=== PATIENT | male | born 1970 | race Caucasian/White ===

== ENCOUNTER 2017-06-03 15:12 | Emergency (ER) | payer OTHER ==
[2015-09-08 09:54] VITALS: BMI 25.5
[~2017-06-03 15:12] MED LIST: CYCLOBENZAPRINE10 MG PO; GABAPENTIN100 MG PO; GLUCOPHAGE1000 MG PO; GLUCOPHAGE500 MG PO; KLONOPIN1 MG PO; MOBIC7.5 MG PO; NEURONTIN 300300 MG PO; TAMIFLU75 MG; TAMIFLU75 MG PO
[2017-06-03 16:35] LABS: BASOPHILS 0.2 % (0-2); EOSINOPHILS 1.4 % (0-7); HEMATOCRIT 43.2 % (42.0-54.0); HEMOGLOBIN 15.5 g/dL (13.5-17.5); IMMATURE GRANULOCYTES 0.1 % (0-5); LYMPHOCYTES 26.9 % (15-50); MCH 31.8 pg (26.0-34.0); MCHC 35.9 g/dL (31.0-37.0); MCV 88.7 fL (80.0-100.0); MEAN PLATELET VOLUME 10.9 fL (7.4-10.4); MONOCYTES 5.7 % (2-11); NEUTROPHILS 65.7 % (40-80); RBC 4.87 10x6/uL (4.20-6.10); RDW 12.3 % (11.5-14.5); WBC 14.4 10x3/uL (4.8-10.8)
[2017-06-03 16:36] LABS: PLATELET COUNT 346 10x3/uL (130-400)
[2017-06-03 16:54] LABS: ALBUMIN 3.8 g/dL (3.4-5.0); ALKALINE PHOSPHATASE 113 U/L (46-116); ALT (SGPT) 24 U/L (10-68); BILIRUBIN - TOTAL 0.77 mg/dL (0.2-1.3); CALC OSMOLALITY 273 mosm/kg (275-300); CALCIUM 9.1 mg/dL (8.5-10.1); CARBON DIOXIDE 26.4 mmol/L (21.0-32.0); CHLORIDE - SERUM 102 mmol/L (98-107); CREATININE - SERUM 0.9 mg/dL (0.6-1.3); POTASSIUM - SERUM 4.3 mmol/L (3.5-5.1); PROTEIN - SERUM 8.8 g/dL (6.4-8.2); SODIUM 138 mmol/L (136-145); UREA NITROGEN 9 mg/dL (7-18); eGFR NON AFRICAN AMERICAN > 90 mL/min (90-120)
[2017-06-03 17:00] LABS: GLUCOSE 83 mg/dL (74-106)
[2017-06-03 17:10] LABS: APPEARANCE CLEAR (CLEAR); BILIRUBIN NEGATIVE (NEGATIVE); COLOR YELLOW (YELLOW); GLUCOSE NEGATIVE (NEGATIVE); KETONE NEGATIVE (NEGATIVE); NITRITE NEGATIVE (NEGATIVE); PROTEIN NEGATIVE (NEGATIVE); UROBILINOGEN NORMAL (NORMAL)
== END 2017-06-03 18:32 | disposition home or self-care (01) ==
LOC: D.ER 15:12
PROVIDERS: Emergency Medicine
DX: R10.9 Unspecified abdominal pain (principal); E11.9 Type 2 diabetes mellitus without complications

== ENCOUNTER 2018-10-07 12:26 | Emergency (ER) | payer OTHER ==
[~2018-10-07] VITALS: Ht 180.3 cm; Wt 100.9 kg
[2018-10-07 12:28] VITALS: Ht 180.3 cm; Wt 100.9 kg
[2018-10-07] MEDS ORDERED: MOBIC7.5 MG (12:33)
[2018-10-07] MEDS ORDERED: MIRAPEX0.5 MG PO (12:34)
[2018-10-07 13:23] LABS: APTT 27.2 SECONDS (22.8-39.4); INR 1.05 (0.85-1.17); PROTIME 13.2 SECONDS (11.6-15.0)
[2018-10-07 13:29] LABS: ALBUMIN 3.5 g/dL (3.4-5.0); ALKALINE PHOSPHATASE 117 U/L (46-116); ALT (SGPT) 26 U/L (10-68); BILIRUBIN - TOTAL 0.68 mg/dL (0.2-1.3); CALC OSMOLALITY 280 mosm/kg (275-300); CALCIUM 8.8 mg/dL (8.5-10.1); CARBON DIOXIDE 28.1 mmol/L (21.0-32.0); CHLORIDE - SERUM 103 mmol/L (98-107); PROTEIN - SERUM 7.7 g/dL (6.4-8.2); SODIUM 139 mmol/L (136-145); UREA NITROGEN 14 mg/dL (7-18); eGFR NON AFRICAN AMERICAN 85 mL/min (90-120)
[2018-10-07 13:31] LABS: GLUCOSE 139 mg/dL (74-106)
[2018-10-07 13:37] LABS: BASOPHILS 0.3 % (0-2); EOSINOPHILS 2.1 % (0-7); HEMATOCRIT 46.2 % (42.0-54.0); HEMOGLOBIN 16.9 g/dL (13.5-17.5); IMMATURE GRANULOCYTES 0.1 % (0-5); LYMPHOCYTES 25.4 % (15-50); MCH 32.7 pg (26.0-34.0); MCHC 36.6 g/dL (31.0-37.0); MCV 89.4 fL (80.0-100.0); MEAN PLATELET VOLUME 11.3 fL (7.4-10.4); MONOCYTES 6.4 % (2-11); NEUTROPHILS 65.7 % (40-80); PLATELET COUNT 269 10x3/uL (130-400); RBC 5.17 10x6/uL (4.20-6.10); RDW 12.3 % (11.5-14.5); WBC 7.3 10x3/uL (4.8-10.8)
[2018-10-07 13:41] LABS: CKMB 1.8 U/L (0.0-3.6); CREATINE KINASE 88 UL (21-232); MAGNESIUM - SERUM 2.4 mg/dL (1.8-2.4)
[2018-10-07 13:44] LABS: TROPONIN-I < 0.017 ng/mL (0.000-0.060)
[2018-10-07 14:29] VITALS: BP 155/87
== END 2018-10-07 14:30 | disposition home or self-care (01) ==
LOC: D.ER 12:26
PROVIDERS: Emergency Medicine
DX: R55 Syncope and collapse (principal)

== ENCOUNTER 2020-03-19 19:12 | Emergency (ER) | payer SELFPAY ==
[~2020-03-19] VITALS: Ht 180.3 cm; Wt 113.6 kg
[~2020-03-19 19:12] MED LIST changes: +MIRAPEX0.5 MG PO; +MOBIC7.5 MG
[2020-03-19 19:21] VITALS: Ht 180.3 cm; Wt 113.6 kg
[2020-03-19] MEDS ORDERED: VYVANSE70 MG PO (19:22)
[2020-03-19] MEDS ORDERED: SCOPOLAMINE1 EACH TRANSDERM (19:23)
[2020-03-19 19:53] LABS: BASOPHILS 0.3 % (0-2); EOSINOPHILS 1.3 % (0-7); HEMATOCRIT 47.9 % (42.0-54.0); HEMOGLOBIN 16.9 g/dL (13.5-17.5); IMMATURE GRANULOCYTES 0.4 % (0-5); LYMPHOCYTES 17.5 % (15-50); MCH 32.7 pg (26.0-34.0); MCHC 35.3 g/dL (31.0-37.0); MCV 92.6 fL (80.0-100.0); MEAN PLATELET VOLUME 9.8 fL (7.4-10.4); MONOCYTES 6.4 % (2-11); NEUTROPHILS 74.1 % (40-80); PLATELET COUNT 289 10x3/uL (130-400); RBC 5.17 10x6/uL (4.20-6.10); RDW 12.2 % (11.5-14.5); WBC 12.2 10x3/uL (4.8-10.8)
[2020-03-19 20:35] LABS: CALC OSMOLALITY 271 mosm/kg (275-300); CALCIUM 8.8 mg/dL (8.5-10.1); CARBON DIOXIDE 25.7 mmol/L (21.0-32.0); CHLORIDE - SERUM 103 mmol/L (98-107); CREATININE - SERUM 0.9 mg/dL (0.6-1.3); GLUCOSE 110 mg/dL (74-106); POTASSIUM - SERUM 3.7 mmol/L (3.5-5.1); SODIUM 136 mmol/L (136-145); UREA NITROGEN 11 mg/dL (7-18); eGFR NON AFRICAN AMERICAN > 90 mL/min (90-120)
[2020-03-19] MEDS ORDERED: DOXYCYCLINE HY100 M2 PO (20:42)
[2020-03-19 20:43] LABS: ALBUMIN 3.6 g/dL (3.4-5.0); ALKALINE PHOSPHATASE 109 U/L (30-120); ALT (SGPT) 20 U/L (10-68); BILIRUBIN - TOTAL 0.42 mg/dL (0.2-1.3); PROTEIN - SERUM 7.6 g/dL (6.4-8.2)
[2020-03-19 21:13] LABS: TROPONIN-I < 0.017 ng/mL (0.000-0.060)
[2020-03-19 22:23] VITALS: BP 166/91
== END 2020-03-19 22:22 | disposition home or self-care (01) ==
LOC: D.ER 19:12
PROVIDERS: Emergency Medicine
DX: S30.861A Insect bite (nonvenomous) of abdominal wall, initial encounter (principal); W57.XXXA Bitten or stung by nonvenomous insect and other nonvenomous arthropods, initial encounter; Y93.9 Activity, unspecified; Y92.9 Unspecified place or not applicable; D72.829 Elevated white blood cell count, unspecified; M54.2 Cervicalgia; M79.10 Myalgia, unspecified site; M25.512 Pain in left shoulder; M25.511 Pain in right shoulder

== ENCOUNTER 2020-03-28 13:15 | Inpatient (IN) | payer BC ==
[~2020-03-28] VITALS: Ht 180.3 cm; Wt 118.2 kg
[~2020-03-28 13:15] MED LIST changes: +DOXYCYCLINE HY100 M2 PO; +SCOPOLAMINE1 EACH TRANSDERM; +VYVANSE70 MG PO
[2020-03-28 15:12] LABS: BASOPHILS 0.4 % (0-2); HEMATOCRIT 44.1 % (42.0-54.0); HEMOGLOBIN 15.6 g/dL (13.5-17.5); IMMATURE GRANULOCYTES 0.4 % (0-5); LYMPHOCYTES 30.5 % (15-50); MCH 32.6 pg (26.0-34.0); MCHC 35.4 g/dL (31.0-37.0); MCV 92.3 fL (80.0-100.0); MEAN PLATELET VOLUME 10.4 fL (7.4-10.4); MONOCYTES 7.5 % (2-11); NEUTROPHILS 58.2 % (40-80); PLATELET COUNT 308 10x3/uL (130-400); RBC 4.78 10x6/uL (4.20-6.10); RDW 12.3 % (11.5-14.5); WBC 8.1 10x3/uL (4.8-10.8)
[2020-03-28 15:17] LABS: APTT 27.6 SECONDS (22.8-39.4); CALC OSMOLALITY 277 mosm/kg (275-300); CALCIUM 8.6 mg/dL (8.5-10.1); CHLORIDE - SERUM 105 mmol/L (98-107); CREATININE - SERUM 0.9 mg/dL (0.6-1.3); GLUCOSE 110 mg/dL (74-106); INR 0.99 (0.85-1.17); POTASSIUM - SERUM 3.7 mmol/L (3.5-5.1); SODIUM 139 mmol/L (136-145); UREA NITROGEN 9 mg/dL (7-18); eGFR NON AFRICAN AMERICAN > 90 mL/min (90-120)
[2020-03-28 15:32] LABS: ALBUMIN 3.3 g/dL (3.4-5.0); ALKALINE PHOSPHATASE 106 U/L (30-120); ALT (SGPT) 18 U/L (10-68); CKMB 1.8 U/L (0.0-3.6); CREATINE KINASE 91 UL (21-232); PROTEIN - SERUM 7.3 g/dL (6.4-8.2)
[2020-03-28 15:34] LABS: TROPONIN-I < 0.017 ng/mL (0.000-0.060)
[2020-03-28 18:38] LABS: GLUCOSE - CSF 66 MG/DL (40-75); PROTEIN - CSF 53 MG/DL (12-60)
[2020-03-28 18:42] LABS: APPEARANCE - CSF CLEAR; RBC - CSF 300 cmm (0-0)
[2020-03-28 18:47] LABS: BILIRUBIN NEGATIVE (NEGATIVE); KETONE NEGATIVE (NEGATIVE); NITRITE NEGATIVE (NEGATIVE); UROBILINOGEN NORMAL mg/dL (< 2)
[2020-03-28 22:39] VITALS: BP 180/90; Ht 180.3 cm; Wt 118.2 kg
[2020-03-29] VITALS: BP 172/94
[2020-03-29 04:00] VITALS: BP 162/89
[2020-03-29 07:06] LABS: BASOPHILS 0.4 % (0-2); HEMATOCRIT 41.7 % (42.0-54.0); HEMOGLOBIN 14.6 g/dL (13.5-17.5); IMMATURE GRANULOCYTES 0.4 % (0-5); MCH 32.4 pg (26.0-34.0); MCV 92.5 fL (80.0-100.0); MEAN PLATELET VOLUME 10.5 fL (7.4-10.4); MONOCYTES 8.4 % (2-11); NEUTROPHILS 58.8 % (40-80); PLATELET COUNT 281 10x3/uL (130-400); RBC 4.51 10x6/uL (4.20-6.10); RDW 12.5 % (11.5-14.5)
--- NOTE | 2020-03-29 07:15 | NUR ---
RECEVIVED BEDSIDE REPORT. PT LAYING IN BED, EVEN RESPIRATIONS, EYES CLOSED, RESPONDS TO VOICE, ANSWERS APPROPRIATELY. PIV IN LEFT AC PATENT AND INFUSING, NO REDNESS OR SWELLING. PT HAS RED SPOT ON CENTER OF UPPER ABD, STATES IT WAS FROM TICK BITE. ABD DISTENDED. WEAKNESS IN BILAT LOWER EXTREM. PT ABLE TO AMBULATE WITH ONE PERSON ASSIST. EDUCATED PT ON CL AND NEEDS, VERBALIZED UNDERSTANDING. BED LOW, RAILS X2. CL IN REACH, WILL CONTINUE TO MONITOR.
[2020-03-29 08:10] LABS: ALBUMIN 3.1 g/dL (3.4-5.0); ALKALINE PHOSPHATASE 99 U/L (30-120); ALT (SGPT) 21 U/L (10-68); BILIRUBIN - TOTAL 0.47 mg/dL (0.2-1.3); CALC OSMOLALITY 275 mosm/kg (275-300); CALCIUM 8.3 mg/dL (8.5-10.1); CARBON DIOXIDE 24.8 mmol/L (21.0-32.0); CHLORIDE - SERUM 105 mmol/L (98-107); CREATININE - SERUM 0.9 mg/dL (0.6-1.3); GLUCOSE 112 mg/dL (74-106); MAGNESIUM - SERUM 2.1 mg/dL (1.8-2.4); PHOSPHOROUS 4.3 mg/dL (2.5-4.9); POTASSIUM - SERUM 3.9 mmol/L (3.5-5.1); PROTEIN - SERUM 6.5 g/dL (6.4-8.2); SODIUM 138 mmol/L (136-145); UREA NITROGEN 11 mg/dL (7-18); eGFR NON AFRICAN AMERICAN > 90 mL/min (90-120)
[2020-03-29 09:25] VITALS: BP 165/87
--- NOTE | 2020-03-29 10:30 | NUR ---
PT ASKED WHEN MD WOULD BE IN TO TALK WITH HIM, EDUCATED ON MD ROUNDING IN AFTERNOON, VERBALIZED UNDERSTANDING. PT C/O PAIN 02/12, PROVIDED PAIN MEDS PER ORDER. BED LOW, CL IN REACH.
[2020-03-29 13:10] VITALS: BP 167/83
--- NOTE | 2020-03-29 14:35 | NUR ---
PT C/O PAIN 02/12, PROVIDED PAIN MEDS PER ORDER. BED LOW, CL IN REACH.
[2020-03-29 17:48] VITALS: BP 105/65
--- NOTE | 2020-03-29 23:00 | NUR ---
PATIENT RESTING IN BED WITH EYES OPEN. NO S/S OF ACUTE DISTRESS. PATEINT APPEARS AGITATED. PATIENT C/O OF WANTING PAIN MEDS, AND WAS ANGERED BY THE FACT THAT IT WAS CHANGED TO Q6 FROM THE Q4 HE WAS GETTING. PATIENT HAS LEFT AC, NORMAL SALINE @ 75 ML/HR. IV IS PATENT WITHOUT REDNESS, SWELLING, OR TENDERNESS. PATEINT ALSO SAYS HE HAS HAD A HEADACHE THAT WILL NOT GO AWAY AND HE REFUSED TYLENOL WHEN I OFFERED. HE ALSO REFUSED ATIVAN WHEN OFFERED. CALL LIGHT WITHIN REACH. WILL CONTINUE TO MONITOR.
[2020-03-30] VITALS: BP 151/85
--- NOTE | 2020-03-30 00:30 | NUR ---
WINNIE MICHAEL, CAME UP TO THE FLOOR AND I ASKED IF WE COULD CHANGE HIS DILAUDID TO Q4. FERNANDA SAID NO. CALL LIGHT WITHIN REACH. WILL CONTINUE TO MONITOR.
--- NOTE | 2020-03-30 03:21 | NUR ---
I have reviewed this patient and I concur with the Shift Assessment completed by the Licensed Practical Nurse today this shift.
[2020-03-30 04:00] VITALS: BP 140/77
[2020-03-30 06:45] LABS: BASOPHILS 0.4 % (0-2); EOSINOPHILS 3.5 % (0-7); HEMATOCRIT 42.2 % (42.0-54.0); HEMOGLOBIN 14.5 g/dL (13.5-17.5); IMMATURE GRANULOCYTES 0.2 % (0-5); LYMPHOCYTES 26.9 % (15-50); MCH 31.7 pg (26.0-34.0); MCHC 34.4 g/dL (31.0-37.0); MCV 92.1 fL (80.0-100.0); MEAN PLATELET VOLUME 10.3 fL (7.4-10.4); MONOCYTES 8.1 % (2-11); NEUTROPHILS 60.9 % (40-80); PLATELET COUNT 299 10x3/uL (130-400); RBC 4.58 10x6/uL (4.20-6.10); RDW 12.2 % (11.5-14.5); WBC 9.4 10x3/uL (4.8-10.8)
[2020-03-30 07:12] LABS: CALC OSMOLALITY 271 mosm/kg (275-300); CALCIUM 8.3 mg/dL (8.5-10.1); CARBON DIOXIDE 25.9 mmol/L (21.0-32.0); CHLORIDE - SERUM 103 mmol/L (98-107); CREATININE - SERUM 0.9 mg/dL (0.6-1.3); GLUCOSE 113 mg/dL (74-106); MAGNESIUM - SERUM 2.2 mg/dL (1.8-2.4); PHOSPHOROUS 3.8 mg/dL (2.5-4.9); POTASSIUM - SERUM 3.6 mmol/L (3.5-5.1); SODIUM 136 mmol/L (136-145); UREA NITROGEN 9 mg/dL (7-18); eGFR NON AFRICAN AMERICAN > 90 mL/min (90-120)
--- NOTE | 2020-03-30 07:15 | NUR ---
RECEIVED BEDSIDE REPORT. PT LAYING IN BED, EYES CLOSED, EVEN RESPIRATIONS, AROUSES TO VOICE. PIV IN LEFT AC, PATENT AND INFUSING, NO REDNESS OR SWELLING. SMALL KENNY ON MID ABD. ABD DISTENDED. BED LOW, CL IN REACH.
--- NOTE | 2020-03-30 09:00 | NUR ---
PT C/O PAIN 03/15, PROVIDED PAIN MEDS PER ORDER, PT TOLERATED WELL. BED LOW, CL IN REACH.
[2020-03-30 10:43] VITALS: BP 144/73
--- NOTE | 2020-03-30 15:15 | NUR ---
PT C/O PAIN 02/12, PROVIDED MEDS PER ORDER, PT TOLERATED WELL. BED LOW, CL IN REACH.
--- NOTE | 2020-03-30 18:31 | NUR ---
PT STATES THAT HE WILL NOT BE STAYING HERE ONE MORE NIGHT, HE STATES THAT HE WAS KEPT UP ALL NIGHT AND THAT WHOEVER WAS IN HIS ROOM WAS RUDE AND TALKING ABOUT POLITICS, HE FELT DISRESPECTED AND HE WANTS TO GO HOME NOW. CALLED FERNANDA ZHOU, HE STATES THAT PT SHOULD NOT BE DISCHARGED AT THIS TIME. PRINTED OUT AMA PAPERWORK AND INFORMED PT THAT THE MD DID NOT APPROVE OF PT LEAVING AT THIS TIME. PT SIGNED AMA PAPERWORK AND LEFT WITH .
[2020-04-04 08:13] LABS: EBV PCR CSF Negative (Negative)
== END 2020-03-30 18:27 | disposition left against medical advice (07) | DRG 103 ==
LOC: D.ER 13:15 → D.MS 16:40 → OBSVTIME 16:40 → D.MS 03-29 15:23
PROVIDERS: Family Medicine; ADMIT Family Medicine; ATTEND Family Medicine
PROC: 009U3ZX Drainage of Spinal Canal, Percutaneous Approach, Diagnostic (ICD-10-PCS; principal; 2020-03-29)
PROC: B01B1ZZ Fluoroscopy of Spinal Cord using Low Osmolar Contrast (ICD-10-PCS; 2020-03-29)
DX: R51 Headache (principal); F10.20 Alcohol dependence, uncomplicated; Y90.9 Presence of alcohol in blood, level not specified; I10 Essential (primary) hypertension; M19.90 Unspecified osteoarthritis, unspecified site; F41.9 Anxiety disorder, unspecified; F90.9 Attention-deficit hyperactivity disorder, unspecified type; K21.9 Gastro-esophageal reflux disease without esophagitis; J45.909 Unspecified asthma, uncomplicated; T14.8XXA Other injury of unspecified body region, initial encounter; W57.XXXA Bitten or stung by nonvenomous insect and other nonvenomous arthropods, initial encounter

== ENCOUNTER 2020-09-26 05:51 | Emergency (ER) | payer BC ==
[~2020-09-26] VITALS: Ht 180.3 cm; Wt 106.8 kg
[2020-09-26 05:55] VITALS: Ht 180.3 cm; Wt 106.8 kg
[2020-09-26 06:32] LABS: BASOPHILS 0.3 % (0-2); EOSINOPHILS 1.6 % (0-7); HEMOGLOBIN 15.2 g/dL (13.5-17.5); IMMATURE GRANULOCYTES 0.2 % (0-5); LYMPHOCYTE ABS# 2.95 10x3/uL (1.32-3.57); LYMPHOCYTES 22.9 % (15-50); MCH 32.8 pg (26.0-34.0); MCHC 35.3 g/dL (31.0-37.0); MCV 92.9 fL (80.0-100.0); MEAN PLATELET VOLUME 10.1 fL (7.4-10.4); MONOCYTES 10.6 % (2-11); NEUTROPHIL ABS# 8.29 10x3/uL (1.78-5.38); NEUTROPHILS 64.4 % (40-80); PLATELET COUNT 295 10x3/uL (130-400); RBC 4.63 10x6/uL (4.20-6.10); RDW 12.9 % (11.5-14.5); WBC 12.9 10x3/uL (4.8-10.8)
[2020-09-26 06:58] LABS: CALC OSMOLALITY 273 mosm/kg (275-300); CALCIUM 8.2 mg/dL (8.5-10.1); CARBON DIOXIDE 26.4 mmol/L (21.0-32.0); CHLORIDE - SERUM 104 mmol/L (98-107); GLUCOSE 108 mg/dL (74-106); SODIUM 137 mmol/L (136-145); UREA NITROGEN 10 mg/dL (7-18); eGFR NON AFRICAN AMERICAN 84 mL/min (90-120)
[2020-09-26 07:11] LABS: ALBUMIN 3.3 g/dL (3.4-5.0); ALKALINE PHOSPHATASE 97 U/L (30-120); ALT (SGPT) 19 U/L (10-68); BILIRUBIN - TOTAL 0.42 mg/dL (0.2-1.3); C-REACTIVE PROTEIN 0.7 mg/dL (0.0-0.9); MAGNESIUM - SERUM 2.3 mg/dL (1.8-2.4); PRO BNP 430 pg/mL (0-125); PROTEIN - SERUM 7.4 g/dL (6.4-8.2); TROPONIN-I < 0.017 ng/mL (0.000-0.060)
[2020-09-26 07:20] LABS: INR 1.16 (0.85-1.17); PROTIME 13.7 SECONDS (11.6-15.0)
[2020-09-26 07:36] LABS: D-DIMER-QUANTITATIVE 0.38 ug/mLFEU (0.20-0.54)
[2020-09-26 09:05] LABS: BILIRUBIN NEGATIVE (NEGATIVE); KETONE NEGATIVE (NEGATIVE); NITRITE NEGATIVE (NEGATIVE); UROBILINOGEN NORMAL mg/dL (< 2)
[2020-09-26 09:09] LABS: UDS - AMPHET POSITIVE QUAL (NEGATIVE); UDS - BARB NEGATIVE QUAL (NEGATIVE); UDS - BENZO NEGATIVE QUAL (NEGATIVE); UDS - COCAINE NEGATIVE QUAL (NEGATIVE); UDS - OPIATE NEGATIVE QUAL (NEGATIVE); UDS - PCP NEGATIVE QUAL (NEGATIVE); UDS - THC POSITIVE QUAL (NEGATIVE)
[2020-09-26] MEDS ORDERED: AUGMENTIN 875-11 TAB PO (09:36)
[2020-09-26] MEDS ORDERED: FAMOTIDINE10 MG PO (09:36)
[2020-09-26] MEDS ORDERED: CLEOCIN HCL300 MG PO (09:36)
[2020-09-26] MEDS ORDERED: BENADRYL25 MG PO (09:36)
[2020-09-26] MEDS ORDERED: PROAIR HFA8.5 G1 INH (10:03)
[2020-09-26 10:49] VITALS: BP 120/61
== END 2020-09-26 10:49 | disposition home or self-care (01) ==
LOC: D.ER 05:51
PROVIDERS: Family Medicine
DX: R06.00 Dyspnea, unspecified (principal); R07.0 Pain in throat; F12.10 Cannabis abuse, uncomplicated; D72.829 Elevated white blood cell count, unspecified; I10 Essential (primary) hypertension; K21.9 Gastro-esophageal reflux disease without esophagitis; R73.03 Prediabetes